=== PATIENT | male | born 1965 | race Caucasian/White ===

== ENCOUNTER 2017-02-10 17:44 | Emergency (ER) | payer OTHER ==
[2017-02-10 19:12] LABS: Comments Flag Yes; Hematocrit 48 % (42-52); Hemoglobin 15.8 g/dl (14.0-18.0); Mean Corpuscular HGB Conc 33 g/dl (31-36); Mean Corpuscular Hemoglobin 31 pg (27-31); Mean Corpuscular Volume 93 fL (80-94); Mean Platelet Volume 10 um3 (7.4-10.4); Red Blood Count 5.12 10^6/ul (4.0-5.4); Red Cell Distribution Width 14 % (10.5-15); White Blood Count 17.4 10^3/ul (3.5-10.8)
[2017-02-10 19:13] LABS: Add Diff/Slide Review? Slide Review Added
[2017-02-10 19:26] LABS: Albumin 4.1 g/dL (3.2-5.2); BUN/Creatinine Ratio 17.9 (8-20); EGFR African American 135.5 (>60); EGFR Non-African American 105.4 (>60); Globulin 2.9 g/dL (2-4); Potassium 3.7 mmol/L (3.5-5.0); Total Bilirubin 0.6 mg/dL (0.2-1.0)
[2017-02-10 19:44] LABS: Neutrophil % 75 % (38-83); RBC Morphology Normal (Normal); Reactive Lymph % 5 % (0-6)
[2017-02-10] MEDS ORDERED: Ketorolac INJ* 30 MG/ML 1 ML VIAL IV ONE (20:28)
[2017-02-10] MEDS ORDERED: Iohexol 300* (CONTRAST) 10 ML SDV IV ONE (20:40)
--- NOTE | 2017-02-10 20:58 | RAD ---
HISTORY: Swelling and pain, tongue and throat swelling COMPARISONS: None TECHNIQUE: Multiple contiguous axial CT scans were obtained of the neck after the administration of nonionic intravenous contrast, with coronal and sagittal multiplanar reformations. FINDINGS: BRAIN AND ORBITS: The visualized brain and orbits are normal. PARANASAL SINUSES: The visualized paranasal sinuses are clear. SALIVARY GLANDS: The parotid glands, submandibular glands, sublingual glands are normal. NASAL CAVITY/NASOPHARYNX: The nasal cavity and nasopharynx are normal. ORAL CAVITY/OROPHARYNX: The oral cavity is obscured by streak artifact from dental amalgam. A tonsillolith is noted on the left. There is mild prominence of the adenoids and palatine tonsils.. LARYNGEAL APPARATUS/HYPOPHARYNX: The laryngeal apparatus and hypopharynx are normal. UPPER AIRWAY/UPPER ESOPHAGUS: The visualized upper airway and esophagus are normal. LUNG APICES: The lung apices are clear. THYROID GLAND: The thyroid gland is normal. LYMPH NODES: There is no lymphadenopathy by size criteria. VASCULATURE: The vasculature is unremarkable. BONES AND SOFT TISSUES: Degenerative changes are noted of the cervical spine. There is a chronic fracture of the lamina papyracea on the right. OTHER: None. IMPRESSION: MILD PROMINENCE OF THE PALATINE TONSILS AND ADENOIDS.
[2017-02-10] MEDS ORDERED: Dexamethasone IV* 4 MG/ML 5 ML VIAL (20 MG) IVPB ONE (21:11)
[2017-02-10] MEDS ORDERED: Clindamycin 600 MG IVPREMIX(* 600 MG/50 ML SDV IV ONE (21:11)
[2017-02-10] MEDS ORDERED: Lidocaine 2% VISCOUS* 15 ML UDC SWISH SPIT ONE (22:20)
[2017-02-10 23:11] VITALS: BP 123/91
[2017-02-10] MEDS ORDERED: Clindamycin CAP* 150 MG PO ONE (23:13)
--- NOTE | 2017-02-10 23:13 | ED ---
Ladonna Escalona Edward, scribed for Roque Le MD on 02/10/17 at 1822 . Throat Pain/Nasal Congestion - HPI Summary HPI Summary: 51 y/o male presents to ED c/o tongue swelling and pain aggravated with food. Patient's tongue swelling and pain started this morning. Associated sx: [place]E, R ear ache, sore throat, intermittent CP for the past couple of weeks, N/V with food for the past month. Past medications reviewed on visit. PMHx ear infections (10 times in last couple of years). - History of Current Complaint Chief Complaint: EDAllergicReaction Time Seen by Provider: 02/10/17 18:06 Hx Obtained From: Patient Onset/Duration: Sudden Onset, Lasting Hours - This morning, Still Present Severity: Severe Associated Signs And Symptoms: Positive: Sinus Discomfort - R ear ache - Allergies/Home Medications Allergies/Adverse Reactions: Allergies Allergy/AdvReac Type Severity Reaction Status Date / Time Acetaminophen [From Percocet] Allergy Itching Verified 02/10/17 18:52 PMH/Surg Hx/FS Hx/Imm Hx Previously Healthy: No Endocrine/Hematology History: Denies: Hx Diabetes, Hx Thyroid Disease Cardiovascular History: Denies: Hx Congestive Heart Failure, Hx Hypertension, Hx Pacemaker/ICD, Other Cardiovascular Problems/Disorders Respiratory History: Reports: Hx Sleep Apnea - NO CPAP YET Denies: Hx Asthma, Hx Chronic Obstructive Pulmonary Disease (COPD), Other Respiratory Problems/Disorders GI History: Reports: Hx Gastroesophageal Reflux Disease - ACID REFLUX CONTROL WITH MEDICATION Denies: Hx Ulcer, Other GI Disorders History: Denies: Hx Dialysis, Hx Kidney Stones, Hx Renal Disease, Other Problems/ Disorders Musculoskeletal History: Reports: Hx Arthritis - OSTEOARTHRITIS THROUGH-OUT BODY , Hx Back Problems, Other Musculoskeletal History - CHRONIC JOINT PAIN Sensory History: Reports: Hx Contacts or Glasses - HX OF GLASSES Denies: Hx Hearing Aid Opthamlomology History: Reports: Hx Contacts or Glasses - HX OF GLASSES Neurological History: Reports: Other Neuro Impairments/Disorders - PAIN CLINIC PT Psychiatric History: Reports: Hx Depression - CONTROL WITH MEDS Denies: Hx Panic Disorder - Surgical History Surgery Procedure, Year, and Place: 07/09 LEFT KNEE SCOPE, [facility] [place]. 2014 LEFT WRIST SURGERY, [facility] [place] Hx Anesthesia Reactions: No - Immunization History Date of Tetanus Vaccine: Unknown Date of Influenza Vaccine: None Infectious Disease History: No Infectious Disease History: Denies: Hx Hepatitis, Hx Human Immunodeficiency Virus (HIV), Traveled Outside the [place] in Last 30 Days - Family History Known Family History: Negative: Cardiac Disease, Diabetes - Social History Alcohol Use: None Alcohol Amount: 6 PER WEEK Substance Use Type: Reports: None Substance Use Comment - Amount & Last Used: yesterday Hx Tobacco Use: Yes Smoking Status (MU): Heavy Every Day Tobacco Smoker Type: Cigarettes Amount Used/How Often: 1 PK DAILY Length of Time of Smoking/Using Tobacco: 35 YRS Have You Smoked in the Last Year: Yes Review of Systems Constitutional: Negative Eyes: Negative Positive: Sore Throat, Ear Ache, Other - Tongue swelling and pain Positive: Chest Pain - couple of episodes last week, now resolved Respiratory: Negative Positive: Vomiting - for past month with food, Nausea - for past month with food Genitourinary: Negative Musculoskeletal: Negative Skin: Negative Positive: Headache Psychological: Normal All Other Systems Reviewed And Are Negative: Yes Physical Exam Triage Information Reviewed: Yes Vital Signs On Initial Exam: Initial Vitals Temp Pulse Resp BP Pulse Ox 98.9 F 96 20 149/98 96 02/10/17 17:49 02/10/17 17:49 02/10/17 17:49 02/10/17 17:49 02/10/17 17:49 Vital Signs Reviewed: Yes Appearance: Positive: Well-Appearing, No Pain Distress Skin: Positive: Warm, Skin Color Reflects Adequate Perfusion, Dry Head/Face: Positive: Normal Head/Face Inspection Eyes: Positive: Normal ENT: Positive: Other - R side of tongue swollen. No sublingual edema Neck: Positive: Supple, Nontender, No Lymphadenopathy Respiratory/Lung Sounds: Positive: Clear to Auscultation, Breath Sounds Present Cardiovascular: Positive: RRR Abdomen Description: Positive: Nontender, Soft Bowel Sounds: Positive: Present Musculoskeletal: Positive: Normal Neurological: Positive: Normal Psychiatric: Positive: Normal, Affect/Mood Appropriate Diagnostics - Vital Signs Vital Signs Temp Pulse Resp BP Pulse Ox 02/10/17 17:58 98.3 F 87 16 139/99 94 02/10/17 17:49 98.9 F 96 20 149/98 96 - Laboratory Lab Results: Lab Results 02/10/17 02/10/17 02/10/17 Range/Units 19:03 19:03 19:03 WBC 17.4 H (3.5-10.8) 10^3/ul RBC 5.12 (4.0-5.4) 10^6/ul Hgb 15.8 (14.0-18.0) g/dl Hct 48 (42-52) % MCV 93 (80-94) fL MCH 31 (27-31) pg MCHC 33 (31-36) g/dl RDW 14 (10.5-15) % Plt Count 212 (150-450) 10^3/ul MPV 10 (7.4-10.4) um3 Neut % (Auto) 78.1 (38-83) % Lymph % (Auto) 10.8 L (25-47) % Mckenzie % (Auto) 9.8 H (1-9) % Eos % (Auto) 0.7 (0-6) % Baso % (Auto) 0.6 (0-2) % Absolute Neuts (auto) 13.6 H (1.5-7.7) 10^3/ul Absolute Lymphs (auto) 1.9 (1.0-4.8) 10^3/ul Absolute Monos (auto) 1.7 H (0-0.8) 10^3/ul Absolute Eos (auto) 0.1 (0-0.6) 10^3/ul Absolute Basos (auto) 0.1 (0-0.2) 10^3/ul Absolute Nucleated RBC 0 10^3/ul Neutrophils % 75 (38-83) % Lymphocytes % 13 L (25-47) % Reactive Lymphs % 5 (0-6) % Monocytes % 7 (0-13) % Nucleated RBC % 0 Normal RBC Morphology Normal (Normal) INR (Anticoag Therapy) 1.02 (0.89-1.11) Sodium 135 (133-145) mmol/L Potassium 3.7 (3.5-5.0) mmol/L Chloride 103 (101-111) mmol/L Carbon Dioxide 28 (22-32) mmol/L Anion Gap 4 (2-11) mmol/L BUN 14 (6-24) mg/dL Creatinine 0.78 (0.67-1.17) mg/dL Est GFR ( Amer) 135.5 (>60) Est GFR (Non-Af Amer) 105.4 (>60) BUN/Creatinine Ratio 17.9 (8-20) Glucose 144 H (70-100) mg/dL Lactic Acid (0.5-2.0) mmol/L Calcium 9.0 (8.6-10.3) mg/dL Total Bilirubin 0.60 (0.2-1.0) mg/dL AST 32 (13-39) U/L ALT 49 (7-52) U/L Alkaline Phosphatase 85 (34-104) U/L Total Protein 7.0 (6.4-8.9) g/dL Albumin 4.1 (3.2-5.2) g/dL Globulin 2.9 (2-4) g/dL Albumin/Globulin Ratio 1.4 (1-3) /18/17 Range/Units 19:03 WBC (3.5-10.8) 10^3/ul RBC (4.0-5.4) 10^6/ul Hgb (14.0-18.0) g/dl Hct (42-52) % MCV (80-94) fL MCH (27-31) pg MCHC (31-36) g/dl RDW (10.5-15) % Plt Count (150-450) 10^3/ul MPV (7.4-10.4) um3 Neut % (Auto) (38-83) % Lymph % (Auto) (25-47) % Mckenzie % (Auto) (1-9) % Eos % (Auto) (0-6) % Baso % (Auto) (0-2) % Absolute Neuts (auto) (1.5-7.7) 10^3/ul Absolute Lymphs (auto) (1.0-4.8) 10^3/ul Absolute Monos (auto) (0-0.8) 10^3/ul Absolute Eos (auto) (0-0.6) 10^3/ul Absolute Basos (auto) (0-0.2) 10^3/ul Absolute Nucleated RBC 10^3/ul Neutrophils % (38-83) % Lymphocytes % (25-47) % Reactive Lymphs % (0-6) % Monocytes % (0-13) % Nucleated RBC % Normal RBC Morphology (Normal) INR (Anticoag Therapy) (0.89-1.11) Sodium (133-145) mmol/L Potassium (3.5-5.0) mmol/L Chloride (101-111) mmol/L Carbon Dioxide (22-32) mmol/L Anion Gap (2-11) mmol/L BUN (6-24) mg/dL Creatinine (0.67-1.17) mg/dL Est GFR ( Amer) (>60) Est GFR (Non-Af Amer) (>60) BUN/Creatinine Ratio (8-20) Glucose (70-100) mg/dL Lactic Acid 1.0 (0.5-2.0) mmol/L Calcium (8.6-10.3) mg/dL Total Bilirubin (0.2-1.0) mg/dL AST (13-39) U/L ALT (7-52) U/L Alkaline Phosphatase (34-104) U/L Total Protein (6.4-8.9) g/dL Albumin (3.2-5.2) g/dL Globulin (2-4) g/dL Albumin/Globulin Ratio (1-3) Result Diagrams: 02/10/17 19:03 02/10/17 19:03 Lab Statement: Any lab studies that have been ordered have been reviewed, and results considered in the medical decision making process. - CT NECK CT CT Interpretation: Positive (See Comments) - MILD PROMINENCE OF THE PALATINE TONSILS AND ADENOIDS. CT Interpretation Completed By: Radiologist ELIDA Course/Dx - Course Course Of Treatment: Mr. Crawford presented with a sore throat flr a couple of weeks and then tongue swelling and pain starting today. His tongue was swollen and mildly erythematous and tender. His posterior phaynx was mildy erythematous. There was no lymphadenopathy. Both TM's were erythematous. He was afebrile but had a leukocytosis of 17K. CT was negative for abscess or significant buccal edema. I recommended that we admit him for observation but he adamantly refused. He was given a first dose of Clindamycin here and a script was sent. - Diagnoses Provider Diagnoses: Pharyngitis Discharge - Discharge Plan Condition: Stable Disposition: HOME Prescriptions: Clindamycin CAP* [Cleocin 150 MG CAP*] 300 mg PO QID #28 cap Patient Education Materials: Pharyngitis (ED) Referrals: Earnest Murphy MD [Primary Care Provider] - 3 Days (F/U in 2-3 days please) The documentation as recorded by the jamalibLadonna wise Edward accurately reflects the service I personally performed and the decisions made by me, Roque Le MD.
== END 2017-02-10 23:13 | disposition home or self-care (01) ==
LOC: ED 17:44
DX: J02.9 Acute pharyngitis, unspecified (principal); H92.01 Otalgia, right ear; R51 Headache; R07.9 Chest pain, unspecified; K21.9 Gastro-esophageal reflux disease without esophagitis; F32.9 Major depressive disorder, single episode, unspecified; Z88.6 Allergy status to analgesic agent; F17.210 Nicotine dependence, cigarettes, uncomplicated
CPT/HCPCS: 36415; 70491; 80053; 83605; 85025; 85610; 87040; 96365; 96375; 99283; J1885

== ENCOUNTER 2018-01-20 09:19 | Emergency (ER) | payer OTHER ==
[2018-01-20 09:53] VITALS: BP 160/100
[2018-01-20] MEDS ORDERED: HYDROcodone/ACETAMIN 5-325 MG* 1 TAB PO ONE (10:15)
--- NOTE | 2018-01-20 10:18 | UC ---
Back Pain HPI - HPI Summary HPI Summary: 52 year old male here requesting medication refill. Patient requesting oxycodone and ambien. He reports his PMD fired him because he missed his appointments. Denies fall in the past few days. Chronic back pain but no numbness, tingling, motor weakness or any other complaints. Of note, patient istop revealed the following results. Others' Prescriptions Patient Name: Leonardo Crawford Date: 1965 Address: [address] [place] [address] Sex: Male Rx Written Rx Dispensed Drug Quantity Days Supply Prescriber Name 01/04/2018 01/04/2018 oxycodone hcl 15 mg tablet 60 15 [place], Earnest Sosa 12/28/2017 12/29/2017 oxycodone hcl 15 mg tablet 30 7 [place], Earnest Sosa 12/28/2017 12/29/2017 zolpidem tartrate 5 mg tablet 14 14 [place], Earnest Sosa 11/24/2017 11/30/2017 oxycodone hcl 15 mg tablet 120 30 [place], Earnest Sosa 11/05/2017 11/24/2017 oxycodone hcl 15 mg tablet 28 7 [place]est 10/05/2017 10/06/2017 oxycodone hcl 15 mg tablet 120 30 [place], Earnest Sosa 05/21/2017 09/18/2017 zolpidem tartrate 5 mg tablet 30 30 [place], Earnest Sosa 09/03/2017 09/06/2017 oxycodone hcl 15 mg tablet 120 30 [place], Earnest Sosa 08/04/2017 08/07/2017 oxycodone hcl 15 mg tablet 120 30 [place], Earnest Ssoa 08/04/2017 08/04/2017 virtussin ac liquid 473ml 12 [place] sosa 07/21/2017 07/23/2017 oxycodone hcl 15 mg tablet 60 15 [place], Earnest Sosa MD 07/07/2017 07/08/2017 oxycodone hcl 15 mg tablet 60 15 [place] MD 06/23/2017 06/23/2017 oxycodone hcl 15 mg tablet 60 15 [place] MD 06/08/2017 06/09/2017 oxycodone hcl 15 mg tablet 60 15 [place] MD 05/22/2017 05/25/2017 oxycodone hcl 15 mg tablet 60 15 [place] MD 05/21/2017 05/24/2017 zolpidem tartrate 5 mg tablet 30 30 [place] MD 04/23/2017 04/25/2017 oxycodone hcl 15 mg tablet 120 30 [place] MD 03/24/2017 03/26/2017 oxycodone hcl 15 mg tablet 120 30 [place] MD 02/24/2017 02/24/2017 oxycodone hcl 15 mg tablet 150 30 [place] MD 02/05/2017 02/06/2017 oxycodone hcl 10 mg tablet 150 25 [place]arnest MD - History of Current Complaint Chief Complaint: UCMedRefill Stated Complaint: MEDICATION REFILL Time Seen by Provider: 01/20/18 09:47 Hx Obtained From: Patient Onset/Duration: Gradual Onset Severity Initially: Moderate Severity Currently: Moderate Pain Intensity: 7 Back Pain: Is Diffuse Aggravating Factor(s): Movement Associated Signs And Symptoms: Positive: Negative - Allergies/Home Medications Allergies/Adverse Reactions: Allergies Allergy/AdvReac Type Severity Reaction Status Date / Time MS Acetaminophen Allergy Itching Verified 02/10/17 18:52 [From Percocet] PMH/Surg Hx/FS Hx/Imm Hx Previously Healthy: No - Surgical History Surgical History: Yes Surgery Procedure, Year, and Place: 07/09 [place] [facility] [place] 2014 [place] [facility] [place] - Family History Known Family History: Negative: Cardiac Disease, Diabetes - Social History Alcohol Use: None Alcohol Amount: 6 PER WEEK Substance Use Type: Marijuana Substance Use Comment - Amount & Last Used: yesterday Smoking Status (MU): Heavy Every Day Tobacco Smoker Type: Cigarettes Amount Used/How Often: 1 PK DAILY Length of Time of Smoking/Using Tobacco: 35 YRS Have You Smoked in the Last Year: Yes When Did the Patient Quit Smoking/Using Tobacco: PACK/DAY Household Exposure Type: Cigarettes Review of Systems Constitutional: Negative Skin: Negative Eyes: Negative ENT: Negative Respiratory: Negative Cardiovascular: Negative Gastrointestinal: Negative Genitourinary: Negative Motor: Negative Neurovascular: Negative Musculoskeletal: Negative Neurological: Negative Psychological: Negative All Other Systems Reviewed And Are Negative: Yes Physical Exam Triage Information Reviewed: Yes Vital Signs: Initial Vital Signs Temp 36.4 C 01/20/18 09:44 Pulse 112 01/20/18 09:44 Resp 16 01/20/18 09:44 BP 160/100 01/20/18 09:44 Pulse Ox 97 01/20/18 09:44 Eye Exam: Normal ENT Exam: Normal Dental Exam: Normal Neck exam: Normal Cardiovascular Exam: Normal Abdominal Exam: Normal Musculoskeletal Exam: Normal Psychological Exam: Normal Skin Exam: Normal Back Pain Course/Dx - Course Course Of Treatment: Chronic pain. I discussed with him that I cant refill his medications but will give a dose and refer him to new . - Differential Dx/Diagnosis Differential Diagnosis/HQI/PQRI: Strain, Sprain Provider Diagnoses: Chronic low back pain Discharge - Sign-Out/Discharge Documenting (check all that apply): Discharge/Admit/Transfer - Discharge Plan Condition: Good Disposition: HOME Prescriptions: Zolpidem TAB* [Ambien*] 5 mg PO BEDTIME PRN #5 tab MDD 2 PRN Reason: Insomnia Referrals: Earnest Murphy MD [Primary Care Provider] - Care [facility] [Outside] - Billing Disposition and Condition Condition: GOOD Disposition: Home
== END 2018-01-20 10:24 | disposition home or self-care (01) ==
LOC: UCEAST 09:19
DX: M54.5 Low back pain (principal); Z76.0 Encounter for issue of repeat prescription; G89.29 Other chronic pain; F17.210 Nicotine dependence, cigarettes, uncomplicated; Z88.5 Allergy status to narcotic agent
CPT/HCPCS: 99212; G0463

== ENCOUNTER 2018-10-29 15:31 | Emergency (ER) | payer OTHER ==
[2018-10-29 15:46] VITALS: BP 177/114
[2018-10-29] MEDS ORDERED: Benzonatate CAP* 100 MG PO ONE (16:13)
--- NOTE | 2018-10-29 16:13 | UC ---
Respiratory Complaint HPI - HPI Summary HPI Summary: 52-year-old male comes in with a chief complaint of cough and sputum production for 2 months. Patient is a smoker. The cough or chest congestion is been getting worse. His chest pain when he coughs. Depressed make the cough worse. He has had some wheezing. Patient's blood pressure is been elevated he was told that was elevated 3 months ago and is not on any hypertension medication. Patient has chronic leg pain needs to be on oxycodone for it and his legs still hurt. Patient does not have a primary care physician at this time and he states he is trying to get a primary care physician. - History of Current Complaint Chief Complaint: UCRespiratory Stated Complaint: COUGH Time Seen by Provider: 10/29/18 15:36 Pain Intensity: 0 - Allergies/Home Medications Allergies/Adverse Reactions: Allergies Allergy/AdvReac Type Severity Reaction Status Date / Time acetaminophen [From Tylenol] Allergy Itching Verified 10/29/18 15:47 PMH/Surg Hx/FS Hx/Imm Hx Previously Healthy: Yes - CHRONIC LEG PAIN Cardiovascular History: Hypertension Respiratory History: COPD - Surgical History Surgical History: Yes Surgery Procedure, Year, and Place: 07[place]09 [place] [facility] [place] [facility] [place] - Family History Known Family History: Negative: Cardiac Disease, Diabetes - Social History Alcohol Use: Daily Alcohol Amount: 6 PER WEEK Substance Use Type: Marijuana Substance Use Comment - Amount & Last Used: yesterday Smoking Status (MU): Heavy Every Day Tobacco Smoker Type: Cigarettes, Cigars Amount Used/How Often: 1 PK DAILY Length of Time of Smoking/Using Tobacco: 35 YRS Have You Smoked in the Last Year: Yes When Did the Patient Quit Smoking/Using Tobacco: PACK/DAY Household Exposure Type: Cigarettes Review of Systems All Other Systems Reviewed And Are Negative: Yes Constitutional: Positive: Fatigue Skin: Positive: Negative Eyes: Positive: Negative ENT: Positive: Nasal Discharge, Sinus Congestion Respiratory: Positive: Shortness Of Breath, Cough, Other - SEE HPI Cardiovascular: Positive: Chest Pain - SEE HPI Gastrointestinal: Positive: Negative Motor: Positive: Negative Neurovascular: Positive: Negative Musculoskeletal: Positive: Other: - SEE HPI Neurological: Positive: Negative Psychological: Positive: Negative Is Patient Immunocompromised?: No Physical Exam Triage Information Reviewed: Yes Appearance: No Pain Distress, Well-Nourished, Ill-Appearing - MILD Vital Signs: Initial Vital Signs Temp 99.0 F 10/29/18 15:38 Pulse 102 10/29/18 15:38 Resp 16 10/29/18 15:38 BP 177/114 10/29/18 15:38 Pulse Ox 100 10/29/18 15:38 Vital Signs Reviewed: Yes Eye Exam: Normal Eyes: Positive: Conjunctiva Clear ENT: Positive: Pharynx normal, Nasal congestion, Nasal drainage, TMs normal Neck exam: Normal Neck: Positive: Supple Respiratory: Positive: No respiratory distress, Rhonchi Cardiovascular: Positive: RRR Musculoskeletal Exam: Normal Musculoskeletal: Positive: Strength Intact, ROM Intact, No Edema, Other: - REPORTS B/L GENERALIZED TENDERNESS TO PALPATION OF LEGS Psychological Exam: Normal Psychological: Positive: Age Appropriate Behavior Skin Exam: Normal Respiratory Course/Dx - Course Course Of Treatment: Patient does not have a primary care physician at this time. I gave them referrals [place] [facility] [place] and [facility] We'll treat the hypertension with lisinopril 10 mg by mouth daily. Patient reports he was on oxycodone for the legs. There are treat with albuterol and a azithromycin and Tessalon for the cough and chest congestion. I did not hear consolidation in the chest today so I do not believe there is a pneumonia at this time. Let the patient know if he gets worse he is reevaluated again right away. - Differential Dx/Diagnosis Provider Diagnosis: Bronchitis with bronchospasm, Hypertension, Leg pain, bilateral Discharge - Sign-Out/Discharge Documenting (check all that apply): Patient Departure All imaging exams completed and their final reports reviewed: No Studies - Discharge Plan Condition: Stable Disposition: HOME Prescriptions: Albuterol HFA INHALER* [Ventolin HFA Inhaler*] 2 puff INH Q4H PRN #1 mdi PRN Reason: Wheezing Azithromyxin CESAR (NF) [Z-Cesar (Zithromax) 250 mg tabs #6] 2 tab PO .TODAY, THEN 1 DAILY #6 tab Benzonatate CAP* [Tessalon 100 MG CAP*] 100 mg PO TID PRN #20 cap PRN Reason: Cough Lisinopril 10 mg PO DAILY #30 tablet oxyCODONE TAB* [Roxycodone TAB 5 mg*] 5 mg PO Q6H PRN #20 tab MDD 4 PRN Reason: Pain Patient Education Materials: Acute Bronchitis (ED), Hypertension (ED), Bronchospasm (ED), Leg Pain (ED) Referrals: [facility] [Outside] [facility] [place] [place]Outside] Additional Instructions: FOLLOW UP WITH YOUR PRIMARY CARE DOCTOR OR [facility]. GET REEVALUATED SOONER FOR ANY WORSENING OF YOUR CONDITION OR ANY QUESTIONS OR CONCERNS. - Billing Disposition and Condition Condition: STABLE Disposition: Home
== END 2018-10-29 16:28 | disposition home or self-care (01) ==
LOC: UCEAST 15:31
DX: J44.9 Chronic obstructive pulmonary disease, unspecified (principal); J98.01 Acute bronchospasm; I10 Essential (primary) hypertension; M79.605 Pain in left leg; M79.604 Pain in right leg; G89.29 Other chronic pain; F17.210 Nicotine dependence, cigarettes, uncomplicated; Z88.8 Allergy status to other drugs, medicaments and biological substances
CPT/HCPCS: 99212; G0463

== ENCOUNTER 2018-11-22 10:52 | Emergency (ER) | payer OTHER ==
[2018-11-22 11:28] VITALS: BP 152/105
[2018-11-22] MEDS ORDERED: Lidocaine 1%* 5 ML VIAL INJ ONE (11:57)
[2018-11-22] MEDS ORDERED: Tetan/Diph/Pertus SYR(Tdap)* 0.5 ML SYR(BOOSTRIX) use SYR IM ONE (11:57)
[2018-11-22] MEDS ORDERED: Ibuprofen TAB* 600 MG PO ONE (11:58)
--- NOTE | 2018-11-22 12:29 | UC ---
Skin Complaint HPI - HPI Summary HPI Summary: 52-year-old male presents with greater than 1 week worth of painful swelling and redness in his left antecubital area. He denies drug use and states that he hurt this when he was working under his vehicle and scratched it on the exhaust. He specifically denies attempting drug use in this area. He presents with shakes chills, malaise and nausea associated with this. It has drained some but has continued to grow over the last few days. - History of Current Complaint Chief Complaint: UCSkin Time Seen by Provider: 11/22/18 11:50 Stated Complaint: SKIN COMPLAINT Hx Obtained From: Patient Pain Intensity: 10 - Allergy/Home Medications Allergies/Adverse Reactions: Allergies Allergy/AdvReac Type Severity Reaction Status Date / Time acetaminophen [From Tylenol] Allergy Itching Verified 11/22/18 11:28 PMH/Surg Hx/FS Hx/Imm Hx Cardiovascular History: Hypertension Other History Of: Hepatitis C - Surgical History Surgical History: Yes Surgery Procedure, Year, and Place: 07/09 [place] [facility] [place] [facility] [place] - Family History Known Family History: Negative: Cardiac Disease, Diabetes - Social History Occupation: Employed Full-time Alcohol Use: Occasionally Alcohol Amount: 6 PER WEEK Substance Use Type: Marijuana Substance Use Comment - Amount & Last Used: yesterday Smoking Status (MU): Heavy Every Day Tobacco Smoker Type: Cigarettes, Cigars Amount Used/How Often: 1 PK DAILY Length of Time of Smoking/Using Tobacco: 35 YRS Have You Smoked in the Last Year: Yes When Did the Patient Quit Smoking/Using Tobacco: PACK/DAY Household Exposure Type: Cigarettes Review of Systems All Other Systems Reviewed And Are Negative: Yes Constitutional: Positive: Fever, Chills, Fatigue Skin: Positive: Other - abscess Respiratory: Positive: Negative Cardiovascular: Positive: Palpitations Gastrointestinal: Positive: Negative, Nausea Musculoskeletal: Positive: Edema, Myalgia Physical Exam Appearance: Ill-Appearing, Pain Distress Vital Signs: Initial Vital Signs Temp 99.2 F 11/22/18 11:23 Pulse 96 11/22/18 11:23 Resp 20 11/22/18 11:23 BP 152/105 11/22/18 11:23 Pulse Ox 100 11/22/18 11:23 Vital Signs Reviewed: Yes ENT Exam: Normal Neck: Positive: Supple Respiratory: Positive: Lungs clear Cardiovascular: Positive: Tachycardia Abdomen Description: Positive: Nontender Musculoskeletal: Positive: Other: - Track moreno noted in the right upper extremity. Neurological: Positive: Other: - Normal range of motion and strength in the left upper extremity Skin Exam: Other - Large, pointing, fluctuant abscess in the left antecubital area with surrounding redness. No tract moreno adjacent. Procedures - Incision and Drainage L AC area Site: L antecubital fossa Anesthesia: Local - lidocaine 1% 5 cc Instrument(s): Scalpel - 11 blade Packing: Gauze, Other - abscess drained approximately 100 cc of purulent material dressed with Kerlix Course/Dx - Course Course Of Treatment: Extremely large abscess in the before meals area likely associated with injection drug use. Patient presented with septic signs and so he was consented for transport to the ER which he consented to. He was then consented for incision and drainage which was performed prior to ambulance transport. A wound culture was obtained. Tetanus shot was not given prior to ambulance disposition. He will need IV antibiotics and blood work which is reason for transport to the emergency department. - Differential Diagnoses - Skin Complaint Differential Diagnoses: Abscess, Other - IV drug use - Diagnoses Provider Diagnosis: Abscess of left arm, IVDU (intravenous drug user), Sepsis Discharge - Sign-Out/Discharge Documenting (check all that apply): Patient Departure All imaging exams completed and their final reports reviewed: No Studies - Discharge Plan Condition: Fair Disposition: TRANS HIGHER LVL OF CARE FAC Referrals: No Primary Care Phys,NOPCP [Primary Care Provider] - Additional Instructions: Go directly to the ER for evaluation. - Billing Disposition and Condition Condition: FAIR Disposition: Trans Higher Lvl of Care Fac - Attestation Statements Document Initiated by Scribe: No
--- NOTE | 2018-11-22 19:31 | UC ---
- Progress Note Progress Note: 11/22/2018 Wound culture positive for MRSA and S. Aureus. Pt was sent to ER for IV antibiotics and further management on his abscess. Pt was D/c home w/ Bactrim PO which covers it No change Meenu Batista PA-C Course/Dx - Diagnoses Provider Diagnoses: Abscess of left arm, IVDU (intravenous drug user), Sepsis Discharge - Sign-Out/Discharge Documenting (check all that apply): Post-Discharge Follow Up All imaging exams completed and their final reports reviewed: No Studies - Discharge Plan Condition: Fair Disposition: TRANS HIGHER LVL OF CARE FAC Referrals: No Primary Care Phys,NOPCP [Primary Care Provider] - Additional Instructions: Go directly to the ER for evaluation. - Billing Disposition and Condition Condition: FAIR Disposition: Trans Higher Lvl of Care Fac
== END 2018-11-22 12:37 | disposition short-term general hospital (02) ==
LOC: UCEAST 10:52
DX: A41.9 Sepsis, unspecified organism (principal); L02.414 Cutaneous abscess of left upper limb; B95.62 Methicillin resistant Staphylococcus aureus infection as the cause of diseases classified elsewhere; R00.2 Palpitations; I10 Essential (primary) hypertension; B19.20 Unspecified viral hepatitis C without hepatic coma; F19.20 Other psychoactive substance dependence, uncomplicated; F17.210 Nicotine dependence, cigarettes, uncomplicated; Z88.6 Allergy status to analgesic agent
CPT/HCPCS: 10060; 87070; 87077; 87186; 87205; 87640; 87641; 99213; A9270-GY; G0463

== ENCOUNTER 2018-11-22 12:45 | Emergency (ER) | payer OTHER ==
[2018-11-22] MEDS ORDERED: Cefepime(*) 2 GM in NS 0.9% 50 ML* 50 ML IVPB ONE (12:56)
[2018-11-22] MEDS ORDERED: metroNIDAZOLE IV 500 MG/100ML* 500 MG/100 ML BAG IVPB ONE (12:56)
--- NOTE | 2018-11-22 13:01 | ED ---
HPI Febrile Illness - HPI Summary HPI Summary: Patient is a 52 y/o M presenting to ED via EMS from [facility] [place] for possible sepsis. Patient had used IV methamphetamine about 1.5 weeks ago and subsequently had the formation of an abscess at left arm. He notes that he typically does not use methamphetamine or any other drugs. Patient had incision and drainage at and had a wound culture obtained. Redness at the site is noted. He denies Hx of MRSA and abscess. PMHx of HTN, patient is on Lisinopril. PSHx of hand surgery is reported. FMHx of HTN, HLD, diabetes is denied. He is a current smoker, reports rare alcohol usage, denies any other substance usage. Pulse 93, BP 174/ 115, o2 98. On triage, pain is denied, nothing is noted to aggravate/alleviate Sx. Home medications and allergies are reviewed. - History of Current Complaint Chief Complaint: EDRashSkinAbscess Hx Obtained From: Patient Onset/Duration: Started Weeks Ago - 1.5 weeks ago, meth usage, subsequent abscess formation, Still Present Timing: Constant, Lasting Weeks - 1.5 weeks ago, meth usage, subsequent abscess formation Current Severity: None - pain denied Pain Intensity: 0 Pain Scale Used: 0-10 Numeric - 0/10 Aggravating Factors: Nothing Alleviating Factors: Nothing Associated Signs and Symptoms: Chills, Other: - redness of left arm - Allergy/Home Medications Allergies/Adverse Reactions: Allergies Allergy/AdvReac Type Severity Reaction Status Date / Time acetaminophen [From Tylenol] Allergy Itching Verified 11/22/18 11:28 Home Medications: Home Medications Famotidine TAB 40 MG(NF) [Pepcid TAB 40 MG(NF)] 40 mg PO DAILY 11/22/18 [ History Confirmed 11/22/18] Lisinopril TAB* [Prinivil TAB 10 MG*] 10 mg PO DAILY 11/22/18 [History Confirmed 11/22/18] PMH/Surg Hx/FS Hx/Imm Hx Endocrine/Hematology History: Denies: Hx Diabetes, Hx Thyroid Disease Cardiovascular History: Reports: Hx Hypertension Denies: Hx Congestive Heart Failure, Hx Pacemaker/ICD, Other Cardiovascular Problems/Disorders Respiratory History: Reports: Hx Sleep Apnea - NO CPAP YET Denies: Hx Asthma, Hx Chronic Obstructive Pulmonary Disease (COPD), Other Respiratory Problems/Disorders GI History: Reports: Hx Gastroesophageal Reflux Disease - ACID REFLUX CONTROL WITH MEDICATION Denies: Hx Ulcer, Other GI Disorders History: Denies: Hx Dialysis, Hx Kidney Stones, Hx Renal Disease, Other Problems/ Disorders Musculoskeletal History: Reports: Hx Arthritis - OSTEOARTHRITIS THROUGH-OUT BODY , Hx Back Problems, Other Musculoskeletal History - CHRONIC JOINT PAIN Sensory History: Reports: Hx Contacts or Glasses - HX OF GLASSES Denies: Hx Hearing Aid Opthamlomology History: Reports: Hx Contacts or Glasses - HX OF GLASSES Neurological History: Reports: Other Neuro Impairments/Disorders - PAIN CLINIC PT Psychiatric History: Reports: Hx Depression - CONTROL WITH MEDS Denies: Hx Panic Disorder - Surgical History Surgery Procedure, Year, and Place: 07/09 LEFT KNEE SCOPE, [facility] [place]. 2014 LEFT WRIST SURGERY, [facility] [place] Hx Anesthesia Reactions: No - Immunization History Date of Tetanus Vaccine: Unknown Date of Influenza Vaccine: None Infectious Disease History: No Infectious Disease History: Denies: Hx Hepatitis, Hx Human Immunodeficiency Virus (HIV), Traveled Outside the [place] in Last 30 Days - Family History Known Family History: Negative: Cardiac Disease, Hypertension, Diabetes - Social History Alcohol Use: Occasionally Alcohol Amount: 6 PER WEEK Substance Use Type: Reports: None Hx Tobacco Use: Yes Smoking Status (MU): Heavy Every Day Tobacco Smoker Type: Cigarettes, Cigars Amount Used/How Often: 1 PK DAILY Length of Time of Smoking/Using Tobacco: 35 YRS Have You Smoked in the Last Year: Yes Review of Systems Positive: Chills. Negative: Fever Skin: Other - POSITIVE - REDNESS OF LEFT ARM All Other Systems Reviewed And Are Negative: Yes Physical Exam - Summary Physical Exam Summary: VITAL SIGNS: Reviewed. GENERAL: Patient is a well-developed and nourished male who is lying comfortable in the stretcher. Patient is not in any acute respiratory distress. HEAD AND FACE: No signs of trauma. No ecchymosis, hematomas or skull depressions. No sinus tenderness. EYES: PERRLA, EOMI x 2, No injected conjunctiva, no nystagmus. EARS: Hearing grossly intact. Ear canals and tympanic membranes are within normal limits. MOUTH: Oropharynx within normal limits. NECK: Supple, trachea is midline, no adenopathy, no JVD, no carotid bruit, no c- spine tenderness, neck with full ROM. CHEST: Symmetric, no tenderness at palpation LUNGS: Clear to auscultation bilaterally. No wheezing or crackles. CVS: Regular rate and rhythm, S1 and S2 present, no murmurs or gallops appreciated. ABDOMEN: Soft, non-tender. No signs of distention. No rebound no guarding, and no masses palpated. Bowel sounds are normal. EXTREMITIES: FROM in all major joints, no edema, no cyanosis or clubbing. NEURO: Alert and oriented x 3. No acute neurological deficits. Speech is normal and follows commands. SKIN: Dry and warm; erythema at anterior of left elbow with tracking to axilla Triage Information Reviewed: Yes Vital Signs On Initial Exam: Initial Vitals Temp Pulse Resp BP Pulse Ox 99.4 F 93 18 174/115 96 11/22/18 12:48 11/22/18 12:48 11/22/18 12:48 11/22/18 12:48 11/22/18 12:48 Vital Signs Reviewed: Yes Diagnostics - Vital Signs Vital Signs Temp Pulse Resp BP Pulse Ox 11/22/18 12:48 99.4 F 93 18 174/115 96 - Laboratory Result Diagrams: 11/22/18 13:28 11/22/18 13:12 Lab Statement: Any lab studies that have been ordered have been reviewed, and results considered in the medical decision making process. Re-Evaluation - Re-Evaluation First Eval Re-Evaluation Time: 15:05 Comment: I discussed all the findings and test results with the patient. Patient was instructed to return to the emergency room immediately if any of the symptoms return worsens. Plan of care was discussed with the patient and understands and agrees. All questions were answered at patient satisfaction. There were no further complaints or concerns. Lung exam before discharge: CTA B/ L. Good air exchange. No wheezing or crackles heard. CVS: S1 and S2 present. No murmurs appreciated. Patient is alert and oriented x 3. Patient is hemodynamically stable. Patient will be discharged home with follow up PCP in the next 2-3 days Course/Dx - Course Assessment/Plan: This patient is a 52-year-old male who presents to the emergency department after he was transferred from the urgent care with a chief complaint of having an abscess in the left elbow. The abscess was I&D by the provider at urgent care. Blood work without any significant abnormality except for hemoglobin 13.6, glucose of 103, CRP of 49.11. During ED course the patient was given cefepime and Flagyl. However, since all the blood test and vital signs do not suggest that the patient is septic, patient will be discharged home with follow-up with primary care physician. Patient is hemodynamically stable alert and oriented 3. Patient will be discharged with a prescription for Bactrim. I discussed all the findings and test results with the patient. Patient was instructed to return to the emergency room immediately if any of the symptoms return worsens. Plan of care was discussed with the patient and understands and agrees. All questions were answered at patient satisfaction. There were no further complaints or concerns. Lung exam before discharge: CTA B/L. Good air exchange. No wheezing or crackles heard. CVS: S1 and S2 present. No murmurs appreciated. Patient is alert and oriented x 3. Patient is hemodynamically stable. Patient will be discharged home with follow up PCP in the next 2-3 days - Diagnoses Provider Diagnoses: Abscess, Cellulitis Discharge - Sign-Out/Discharge Documenting (check all that apply): Patient Departure - discharge Patient Received Moderate/Deep Sedation with Procedure: No - Discharge Plan Condition: Stable Disposition: HOME Prescriptions: Sulfamethox/Trimethoprim DS* [Bactrim DS 800/160 TAB*] 1 tab PO BID #20 tab Patient Education Materials: Cellulitis (ED), Abscess (ED) Referrals: [facility] [Outside] - 3 Days Additional Instructions: RETURN TO ED FOR ANY NEW OR WORSENING SYMPTOMS. FOLLOW UP WITH YOUR PRIMARY CARE PHYSICIAN WITHIN THREE DAYS - Billing Disposition and Condition Condition: STABLE Disposition: Home - Attestation Statements Document Initiated by Royer: Yes Documenting Scribe: PATRICIA NGUYEN Provider For Whom Royer is Documenting (Include Credential): JAILENE HARRELL MD Scribe Attestation: PATRICIA Escalona, scribed for JAILENE HARRELL MD on 11/22/18 at 2110. Scribe Documentation Reviewed: Yes Provider Attestation: The documentation as recorded by the PATRICIA gan accurately reflects the service I personally performed and the decisions made by , JAILENE HARRELL MD Status of Scribe Document: Viewed
[2018-11-22 13:38] LABS: Activated Partial Thrombo Time 28.8 seconds (26.0-36.3); INR 1.12 (0.82-1.09)
[2018-11-22 13:44] LABS: Albumin 3.9 g/dL (3.2-5.2); Albumin/Globulin Ratio 1.1 (1-3); BUN/Creatinine Ratio 23.2 (8-20); C Reactive Protein 49.11 mg/L (<8.01); Calcium 9.3 mg/dL (8.6-10.3); EGFR African American 146.3 (>60); EGFR Non-African American 120.9 (>60); Globulin 3.4 g/dL (2-4); Total Bilirubin 0.3 mg/dL (0.2-1.0); Total Protein 7.3 g/dL (6.4-8.9)
[2018-11-22] MEDS ORDERED: NS 0.9% 1000 ML** 1,000 ML IV ONE (13:53)
[2018-11-22 14:19] LABS: ABS Basophils 0 10^3/ul (0-0.2); ABS Eosinophils 0.1 10^3/ul (0-0.6); ABS Lymphocytes 1.6 10^3/ul (1.0-4.8); ABS Monocytes 0.9 10^3/ul (0-0.8); ABS Neutrophils 7.5 10^3/ul (1.5-7.7); ABS Nucleated RBC 0 10^3/ul; Eosinophil % 0.9 %; Hematocrit 40 % (36-46); Hemoglobin 13.6 g/dL (14.0-18.0); Lymphocyte % 15.4 %; Mean Corpuscular HGB Conc 34 g/dL (31-36); Mean Corpuscular Hemoglobin 31 pg (27-31); Mean Corpuscular Volume 90 fL (80-94); Mean Platelet Volume 8.9 fL (7.4-10.4); Nucleated Red Blood Cells % 0; Platelet Count 235 10^3/uL (150-450); Red Blood Count 4.41 10^6 /uL (4.18-5.48); Red Cell Distribution Width 13 % (10.5-15); White Blood Count 10.1 10^3/uL (3.5-10.8)
[2018-11-22 14:28] LABS: Potassium 4.4 mmol/L (3.5-5.0)
[2018-11-22] MEDS ORDERED: Cefepime 2 GM in Dextrose(*) 2 GM/50 ML BAG IV ONE (14:56)
[2018-11-22] MEDS ORDERED: Cefepime* 2 GM in Dextrose 50mL Q24H (Duplex) IV ONE (15:00)
[2018-11-22 15:53] VITALS: BP 159/100
== END 2018-11-22 15:53 | disposition home or self-care (01) ==
LOC: ED 12:45
DX: L02.414 Cutaneous abscess of left upper limb (principal); L03.114 Cellulitis of left upper limb; I10 Essential (primary) hypertension; K21.9 Gastro-esophageal reflux disease without esophagitis; F32.9 Major depressive disorder, single episode, unspecified; F17.210 Nicotine dependence, cigarettes, uncomplicated; Z79.899 Other long term (current) drug therapy; Z88.6 Allergy status to analgesic agent
CPT/HCPCS: 36415; 80053; 83605; 85025; 85610; 85730; 86140; 87040; 96365; 96366; 96367; 99283; J0692; J3490

== ENCOUNTER 2021-07-13 09:22 | Inpatient (IN) ==
[2021-07-13] MEDS ORDERED: Lactated Ringers 1000 ml BAG 1,000 ML IV ONE ×2 (09:38→09:48)
[2021-07-13] MEDS ORDERED: Albuterol HFA INHALER 8 gm MDI INH ONE (09:46)
[2021-07-13] MEDS ORDERED: Pantoprazole 80 mg in NS BAG 80 MG/250 ML BAG IV ONE (09:46)
[2021-07-13] MEDS ORDERED: Morphine 4 MG/ML VIAL (1 ml) IV ONE (09:48)
[2021-07-13] MEDS ORDERED: Dexamethasone IV 4 MG/ML VIAL 1 ml VIAL IV SLOW PU ONE (09:50)
[2021-07-13] MEDS ORDERED: Acetaminophen IV 1 GM/100ML 100 ML IV ONE (10:30)
[2021-07-13 10:33] LABS: Activated Partial Thrombo Time 30.7 seconds (26.0-38.0); INR 1.23 (0.86-1.15); Venous Bicarbonate HCO3 23.3 mmol/L (24-28)
[2021-07-13 10:36] LABS: Hematocrit 39 % (42-52); Mean Corpuscular HGB Conc 33 g/dL (31-36); Mean Corpuscular Hemoglobin 30 pg (27-31); Mean Corpuscular Volume 90 fL (80-94); Mean Platelet Volume 10.1 fL (7.4-10.4); Platelet Count 238 10^3/uL (150-450); Red Blood Count 4.37 10^6 /uL (4.18-5.48); Red Cell Distribution Width 14 % (10-15); White Blood Count 23.5 10^3/uL (3.5-10.8)
[2021-07-13] MEDS ORDERED: Morphine 2 MG/ML SYRINGE IV ONE (10:59)
[2021-07-13] MEDS ORDERED: Piperacillin/Tazobac ADVAN 3.375 GM in NS 0.9% 100 ml BAG 100 ML IV ONE (11:00)
[2021-07-13] MEDS ORDERED: Lactated Ringers 500 ml BAG 500 ML IV ONE (11:02)
[2021-07-13 11:05] LABS: Troponin I 0.01 ng/mL (<0.03)
[2021-07-13 11:08] LABS: LDH 276 U/L (140-271)
[2021-07-13 11:09] LABS: Albumin 3.5 g/dL (3.2-5.2); Calcium 8.4 mg/dL (8.6-10.3); Potassium 4.2 mmol/L (3.5-5.0); Total Bilirubin 0.4 mg/dL (0.2-1.0)
[2021-07-13 11:13] LABS: ABS Lymphocytes 0.5 10^3/ul (1.0-4.8); ABS Monocytes 1.9 10^3/ul (0-0.8); Lymphocyte % 2.3 %
[2021-07-13 11:15] LABS: Albumin/Globulin Ratio 1.1 (1-3); C Reactive Protein 103.67 mg/L (<8.01); Globulin 3.3 g/dL (2-4); Total Protein 6.8 g/dL (6.4-8.9)
[2021-07-13] MEDS ORDERED: Iohexol 350 (CONTRAST) 500 ML MDV IV ONE (11:20)
[2021-07-13] MEDS ORDERED: Albuterol HFA INHALER 8 gm MDI INH PRN (14:48)
[2021-07-13] MEDS ORDERED: Enoxaparin 40 MG/0.4 ML SYR SUBCUT SCH (15:00)
[2021-07-13] MEDS ORDERED: DOXYcycline 100 MG in NS 0.9% 250 ml 250 ML IVPB SCH ×2 (15:00→19:30)
[2021-07-13 15:13] LABS: Rheumatoid Factor < 10 IU/mL (<15)
[2021-07-13] MEDS: Piperacillin/Tazobac ADVAN 3.375 GM in NS 0.9% 100 ml BAG 100 ML IV SCH ×2 (15:22→23:50)
[2021-07-13 15:50] LABS: Urine Appearance Clear; Urine Bilirubin Negative (Negative); Urine Blood Negative (Negative); Urine Color Yellow; Urine Glucose 1+(50 mg/dL) (Negative); Urine Ketones Negative (Negative); Urine Nitrite Negative (Negative); Urine Protein Negative (Negative); Urine Specific Gravity 1.032 (1.002-1.030); Urine Urobilinogen Negative (Negative)
[2021-07-13] MEDS ORDERED: Vancomycin 1,000 MG in NS 0.9% 250 ml 250 ML IVPB ONE (19:00)
[2021-07-13] MEDS ORDERED: NS 0.9% 250 ml 250 ML ONE (19:17)
[2021-07-13] MEDS: Morphine 2 MG/ML SYRINGE IV PRN ×2 (20:23→23:53)
[2021-07-13 20:32] LABS: HIV 4th Generation Nonreactive (Nonreactive)
[2021-07-13] MEDS: Pantoprazole 80 mg in NS BAG 80 MG/250 ML BAG IV SCH (20:40)
[2021-07-14 02:09] VITALS: BP 116/59
[2021-07-14] MEDS: Morphine 2 MG/ML SYRINGE IV PRN ×2 (02:30→04:35)
[2021-07-14 05:07] LABS: Hematocrit 35 % (42-52); Hemoglobin 11.7 g/dL (14.0-18.0); Mean Corpuscular HGB Conc 34 g/dL (31-36); Mean Corpuscular Hemoglobin 30 pg (27-31); Mean Corpuscular Volume 89 fL (80-94); Mean Platelet Volume 10.5 fL (7.4-10.4); Platelet Count 223 10^3/uL (150-450); Red Blood Count 3.88 10^6 /uL (4.18-5.48); Red Cell Distribution Width 14 % (10-15); White Blood Count 25.6 10^3/uL (3.5-10.8)
[2021-07-14 05:14] LABS: ABS Basophils 0.1 10^3/ul (0-0.2); ABS Lymphocytes 1.4 10^3/ul (1.0-4.8); ABS Monocytes 1.6 10^3/ul (0-0.8); ABS Neutrophils 22.6 10^3/ul (1.5-7.7); Lymphocyte % 5.3 %
[2021-07-14] MEDS: Pantoprazole 80 mg in NS BAG 80 MG/250 ML BAG IV SCH (05:20)
[2021-07-14 05:25] LABS: Magnesium 1.5 mg/dL (1.9-2.7); Phosphorus 2.4 mg/dL (2.5-5.0); Potassium 4.1 mmol/L (3.5-5.0); eGFR CKD-EPI 89.4 (>60)
[2021-07-14] MEDS ORDERED: Piperacillin/Tazobac ADVAN 3.375 GM in NS 0.9% 100 ml BAG 100 ML IV SCH (06:00)
[2021-07-14] MEDS ORDERED: Magnesium Sulfate IV 3 GM in NS 0.9% 100 ml BAG 100 ML IVPB ONE (07:16)
[2021-07-14] MEDS ORDERED: Vancomycin 1000 MG in NS 0.9% 250 ML IVPB SCH (08:00)
[2021-07-14] MEDS ORDERED: DULoxetine DR 60 mg CAP PO SCH (09:00)
[2021-07-14] MEDS ORDERED: Dexamethasone IV 4 MG/ML 5 ML VIAL (20 MG) IVPB SCH (09:00)
[2021-07-14] MEDS ORDERED: Dexamethasone IV 4 MG/ML VIAL 1 ml VIAL IV SLOW PU SCH (09:00)
[2021-07-14] MEDS ORDERED: Tiotropium Brom/Olodaterol MDI INH SCH (09:00)
[2021-07-15] MEDS ORDERED: Vancomycin Trough Check NOTE FOLLOW UP ONE (07:30)
[2021-07-16 16:19] LABS: Complement C3 126 mg/dL (75 - 175)
[2021-07-16 17:51] LABS: Complement CH50 34 U/mL (30-75)
[2021-07-17 11:55] LABS: Cyclic Citrullinated Pept IgG <15.6 U
[2021-07-17 12:20] LABS: C-ANCA Negative (Negative); P-ANCA Negative (Negative)
== END 2021-07-14 07:00 | disposition left against medical advice (07) | DRG 720 ==
LOC: ED 09:22 → EDHOLD 14:26 → MED 07-14 01:34
PROVIDERS: ADMIT Internal Medicine; ATTEND Internal Medicine

== ENCOUNTER 2022-02-21 12:22 | Inpatient (IN) ==
[2022-02-21 13:00] LABS: ABS Basophils 0.1 10^3/ul (0-0.2); ABS Eosinophils 0.1 10^3/ul (0-0.6); ABS Lymphocytes 2.4 10^3/ul (1.0-4.8); ABS Monocytes 1.3 10^3/ul (0-0.8); ABS Neutrophils 7.6 10^3/ul (1.5-7.7); Eosinophil % 0.6 %; Hematocrit 46 % (42-52); Hemoglobin 15.5 g/dL (14.0-18.0); Lymphocyte % 20.6 %; Mean Corpuscular HGB Conc 33 g/dL (31-36); Mean Corpuscular Hemoglobin 30 pg (27-31); Mean Corpuscular Volume 89 fL (80-94); Mean Platelet Volume 9.6 fL (7.4-10.4); Platelet Count 274 10^3/uL (150-450); Red Blood Count 5.18 10^6 /uL (4.18-5.48); Red Cell Distribution Width 15 % (10-15); White Blood Count 11.4 10^3/uL (3.5-10.8)
[2022-02-21 13:21] LABS: INR 1.17 (0.89-1.11)
[2022-02-21 13:29] LABS: High Sens Troponin Baseline 11 pg/mL (<20)
[2022-02-21] MEDS ORDERED: NS 0.9% 1000 ml BAG 1,000 ML IV ONE (13:50)
[2022-02-21] MEDS ORDERED: Lorazepam PYXIS KEY PRN (13:51)
[2022-02-21] MEDS ORDERED: LORazepam 2 mg VIAL 1 ml IV PUSH ONE (13:51)
[2022-02-21 13:56] LABS: ALT 40 U/L (7-52); AST 30 U/L (13-39); Albumin 4.5 g/dL (3.2-5.2); Albumin/Globulin Ratio 1.3 (1-3); Alcohol, S < 13 mg/dL (<13); Alkaline Phosphatase 101 U/L (35-149); Anion Gap 9 mmol/L (2-11); Blood Urea Nitrogen 21 mg/dL (6-24); CO2 Carbon Dioxide 26 mmol/L (22-32); Calcium 9.8 mg/dL (8.6-10.3); Chloride 104 mmol/L (101-111); Globulin 3.4 g/dL (2-4); Glucose 146 mg/dL (70-100); Potassium 3.4 mmol/L (3.5-5.0); Sodium 139 mmol/L (135-145); Total Protein 7.9 g/dL (6.4-8.9); eGFR CKD-EPI 57.4 (>60)
[2022-02-21 14:33] LABS: High Sensitivity Troponin 1 Hr 12 pg/mL (<20)
[2022-02-21 14:43] LABS: Venous Bicarbonate HCO3 26.2 mmol/L (24-28)
[2022-02-21] MEDS ORDERED: Droperidol 5 MG/2 ML 2 ML VIAL IV ONE (17:07)
[2022-02-21] MEDS ORDERED: Midazolam 5 mg/5 ml VIAL 1 mg/ml 5 ml VIAL (5 mg) IV SLOW PU ONE (17:08)
[2022-02-21] MEDS ORDERED: Albuterol HFA INHALER 8 gm MDI INH PRN (20:11)
[2022-02-21] MEDS ORDERED: Lactated Ringers 1000 ml BAG 1,000 ML IV ONE (20:13)
[2022-02-21 20:16] LABS: Magnesium 1.7 mg/dL (1.9-2.7); Phosphorus 3.7 mg/dL (2.5-5.0)
[2022-02-21] MEDS ORDERED: Clotrimazole 1% CREAM 30 gm TOPICAL SCH (21:00)
[2022-02-21] MEDS ORDERED: Heparin 5000 UNITS/ML 1 mL VIAL SUBCUT SCH (22:00)
[2022-02-22] MEDS ORDERED: Magnesium Sulfate 2 gm BAG 2 GM/50 ML BAG IVPB ONE (01:34)
[2022-02-22 04:57] VITALS: BP 129/82
[2022-02-22] MEDS ORDERED: CMCS: Ketoconazole 2 % CREAM (NF) 30 GM TUBE TOPICAL SCH (09:00)
== END 2022-02-22 04:50 | disposition left against medical advice (07) | DRG 816 ==
LOC: ED 12:22 → EDHOLD 19:26 → ICU 20:00
PROVIDERS: ADMIT Internal Medicine Critical Care Medicine; ATTEND Internal Medicine Critical Care Medicine

== ENCOUNTER 2022-04-07 08:00 | Inpatient (IN) ==
[2022-04-07] MEDS ORDERED: Albuterol 2.5mg/3 ml (0.083%) NEB.SOLN INH ONE (08:32)
[2022-04-07 08:49] LABS: ABS Neutrophils 6.3 10^3/ul (1.5-7.7); Eosinophil % 0.1 %; Hematocrit 42 % (42-52); Hemoglobin 13.8 g/dL (14.0-18.0); Lymphocyte % 12.4 %; Mean Corpuscular HGB Conc 33 g/dL (31-36); Mean Corpuscular Hemoglobin 29 pg (27-31); Mean Corpuscular Volume 87 fL (80-94); Mean Platelet Volume 9.6 fL (7.4-10.4); Nucleated Red Blood Cells % 0.1; Platelet Count 152 10^3/uL (150-450); Red Cell Distribution Width 14 % (10-15); White Blood Count 8.4 10^3/uL (3.5-10.8)
[2022-04-07 09:36] LABS: Albumin 3.5 g/dL (3.2-5.2); Albumin/Globulin Ratio 1.1 (1-3); Calcium 8.1 mg/dL (8.6-10.3); Globulin 3.2 g/dL (2-4); Total Bilirubin 0.4 mg/dL (0.2-1.0); Total Protein 6.7 g/dL (6.4-8.9); eGFR CKD-EPI 103.4 (>60)
[2022-04-07] MEDS ORDERED: cefTRIAXone 1 gm/50 mL D5W 1 GM/50 ML BAG IV ONE (10:12)
[2022-04-07] MEDS ORDERED: methylPREDNISolone SOD SUCC 125 mg 2 ML VIAL IV ONE (10:12)
[2022-04-07] MEDS ORDERED: Azithromycin 500 mg/250 ml NS 500 MG/250 ML BAG IVPB ONE (10:12)
[2022-04-07] MEDS ORDERED: Nicotine PATCH 14 MG/24 HR PATCH TRANSDERM ONE (10:22)
[2022-04-07] MEDS ORDERED: Morphine 4 MG/ML VIAL (1 ml) IV ONE (10:22)
[2022-04-07 10:24] LABS: Magnesium 1.6 mg/dL (1.9-2.7); Potassium 4.1 mmol/L (3.5-5.0)
[2022-04-07] MEDS ORDERED: Magnesium Sulfate 2 gm BAG 2 GM/50 ML BAG IVPB ONE (10:36)
[2022-04-07 10:42] LABS: High Sensitivity Troponin 1 Hr 9 pg/mL (<20)
[2022-04-07] MEDS ORDERED: Iohexol 350 (CONTRAST) 500 ML MDV IV ONE (10:53)
[2022-04-07] MEDS ORDERED: Albuterol HFA INHALER 8 gm MDI INH PRN (13:29)
[2022-04-07] MEDS ORDERED: Enoxaparin 40 MG/0.4 ML SYR SUBCUT SCH (14:00)
[2022-04-07] MEDS ORDERED: cefTRIAXone 1 gm/50 mL D5W 1 GM/50 ML BAG IV SCH (14:30)
[2022-04-07] MEDS ORDERED: guaiFENesin 100 mg/5 ml LIQ unit dose cup PO SCH (15:00)
[2022-04-07] MEDS ORDERED: Remdesivir 100 mg Vial 200 MG in NS 0.9% 250 ml 210 ML IV ONE (15:00)
[2022-04-07] MEDS ORDERED: Albuterol HFA INHALER 8 gm MDI INH SCH ×2 (15:00→19:00)
[2022-04-07 19:54] VITALS: BP 149/89
[2022-04-07 20:02] LABS: INR 1.11 (0.89-1.11)
[2022-04-07 20:23] LABS: Albumin 3.5 g/dL (3.2-5.2); Albumin/Globulin Ratio 1.1 (1-3); Calcium 8.5 mg/dL (8.6-10.3); Globulin 3.1 g/dL (2-4); Potassium 4.3 mmol/L (3.5-5.0); Total Bilirubin 0.3 mg/dL (0.2-1.0); Total Protein 6.6 g/dL (6.4-8.9)
[2022-04-07 21:48] LABS: eGFR CKD-EPI 106.1 (>60)
[2022-04-08] MEDS ORDERED: Remdesivir 100 mg Vial 100 MG in NS 0.9% 250 ml 230 ML IV SCH (09:00)
[2022-04-08] MEDS ORDERED: Azithromycin 500 mg/250 ml NS 500 MG/250 ML BAG IVPB SCH (10:30)
[2022-04-08] MEDS ORDERED: cefTRIAXone 1 gm/50 mL D5W 1 GM/50 ML BAG IV SCH (12:00)
== END 2022-04-07 22:13 | disposition left against medical advice (07) | DRG 137 ==
LOC: ED 08:00 → EDHOLD 13:19 → MED 16:47
PROVIDERS: ADMIT Family Medicine; ATTEND Family Medicine

== ENCOUNTER 2022-04-16 12:55 | Inpatient (IN) ==
[2022-04-16 13:36] LABS: Hematocrit 38 % (42-52); Hemoglobin 12.2 g/dL (14.0-18.0); Mean Corpuscular HGB Conc 32 g/dL (31-36); Mean Corpuscular Hemoglobin 28 pg (27-31); Mean Corpuscular Volume 87 fL (80-94); Mean Platelet Volume 8.7 fL (7.4-10.4); Platelet Count 335 10^3/uL (150-450); Red Blood Count 4.31 10^6 /uL (4.18-5.48); Red Cell Distribution Width 14 % (10-15); White Blood Count 26.3 10^3/uL (3.5-10.8)
[2022-04-16 13:49] LABS: INR 1.43 (0.89-1.11)
[2022-04-16 14:13] LABS: Albumin 3.5 g/dL (3.2-5.2); Albumin/Globulin Ratio 1.1 (1-3); Calcium 8.7 mg/dL (8.6-10.3); Globulin 3.3 g/dL (2-4); Potassium 4.5 mmol/L (3.5-5.0); Total Bilirubin 1.1 mg/dL (0.2-1.0); Total Protein 6.8 g/dL (6.4-8.9); eGFR CKD-EPI 79.3 (>60)
[2022-04-16 14:42] LABS: ABS Lymphocytes 0.9 10^3/ul (1.0-4.8); ABS Monocytes 3.1 10^3/ul (0-0.8); ABS Neutrophils 22.3 10^3/ul (1.5-7.7); Eosinophil % 0.1 %; Lymphocyte % 3.3 %
[2022-04-16 15:33] LABS: High Sensitivity Troponin 1 Hr 5 pg/mL (<20)
[2022-04-16] MEDS ORDERED: NS 0.9% 1000 ml BAG 1,000 ML IV ONE (16:31)
[2022-04-16 16:38] LABS: INR 1.47 (0.89-1.11)
[2022-04-16] MEDS ORDERED: HYDROmorphone 1 MG/1 ML SYRINGE IV SLOW PU ONE ×2 (16:40→22:17)
[2022-04-16] MEDS ORDERED: Piperacillin/Tazobac ADVAN 3.375 GM in NS 0.9% 100 ml BAG 100 ML IV ONE (16:40)
[2022-04-16] MEDS ORDERED: Vancomycin 1,000 MG in NS 0.9% 250 ml 250 ML IVPB ONE (16:40)
[2022-04-16] MEDS ORDERED: Iohexol 350 (CONTRAST) 500 ML MDV IV ONE (16:44)
[2022-04-16] MEDS ORDERED: Albuterol HFA INHALER 8 gm MDI INH ONE (16:48)
[2022-04-16 17:07] LABS: Activated Partial Thrombo Time 37.9 seconds (26.0-38.0)
[2022-04-16] MEDS ORDERED: Albuterol HFA INHALER 8 gm MDI INH PRN (19:32)
[2022-04-16] MEDS ORDERED: Vancomycin per Pharmacy 1 EA NOTE FOLLOW UP SCH (20:00)
[2022-04-16] MEDS ORDERED: metroNIDAZOLE IV 500 MG/100ML 500 MG/100 ML BAG IVPB SCH (20:00)
[2022-04-16 22:54] LABS: Urine Appearance Clear; Urine Bilirubin Negative (Negative); Urine Blood 1+ (Negative); Urine Color Amber; Urine Glucose Negative (Negative); Urine Ketones Negative (Negative); Urine Nitrite Negative (Negative); Urine Protein 2+(100 mg/dL) (Negative); Urine Urobilinogen Negative (Negative)
[2022-04-16 23:13] LABS: Urine Bacteria Absent (Absent); Urine Red Blood Cell 1+(3-5/hpf) (Absent); Urine Squamous Epithelial Cell Present (Absent); Urine White Blood Cell Absent (Absent)
[2022-04-16 23:20] LABS: Urine Specific Gravity > 1.060 (1.002-1.030)
[2022-04-17] MEDS: Cefepime 2 GM in Dextrose 2 GM/50 ML BAG IV SCH ×3 (00:35→23:13)
[2022-04-17] MEDS: metroNIDAZOLE IV 500 MG/100ML 500 MG/100 ML BAG IVPB SCH ×3 (05:32→22:00)
[2022-04-17 06:03] LABS: Hematocrit 36 % (42-52); Hemoglobin 12.3 g/dL (14.0-18.0); Mean Corpuscular HGB Conc 34 g/dL (31-36); Mean Corpuscular Hemoglobin 29 pg (27-31); Mean Corpuscular Volume 86 fL (80-94); Mean Platelet Volume 8.8 fL (7.4-10.4); Platelet Count 319 10^3/uL (150-450); Red Blood Count 4.21 10^6 /uL (4.18-5.48); Red Cell Distribution Width 14 % (10-15)
[2022-04-17 06:05] LABS: ABS Lymphocytes 0.6 10^3/ul (1.0-4.8); ABS Monocytes 1.2 10^3/ul (0-0.8); ABS Neutrophils 21.2 10^3/ul (1.5-7.7); Lymphocyte % 2.8 %
[2022-04-17 06:12] LABS: INR 1.4 (0.89-1.11)
[2022-04-17 06:35] LABS: C Reactive Protein 285.73 mg/L (<8.01); Calcium 8.5 mg/dL (8.6-10.3); Magnesium 1.9 mg/dL (1.9-2.7); Potassium 4.7 mmol/L (3.5-5.0); eGFR CKD-EPI 101.5 (>60)
[2022-04-17] MEDS: Vancomycin 1,250 MG in NS 0.9% 250 ml 250 ML IVPB SCH ×2 (08:03→20:06)
[2022-04-17] MEDS: SPIRIVA Respimat (tiotropium) 2.5 mcg/inh Inhaler INH SCH (08:51)
[2022-04-17] MEDS: Nicotine PATCH 21 MG/24 HR PATCH TRANSDERM SCH (09:00)
[2022-04-17 18:44] LABS: Urine Benzodiazepine Screen None Detected (None Detect); Urine Buprenorphine Screen None Detected (None Detect); Urine Cannabinoids Screen Presumptive Positive (None Detect); Urine Fentanyl Screen Presumptive Positive (None Detect); Urine Hydrocodone Screen Presumptive Positive (None Detect); Urine Opiates Screen Presumptive Positive (None Detect)
[2022-04-18] MEDS: metroNIDAZOLE IV 500 MG/100ML 500 MG/100 ML BAG IVPB SCH ×3 (05:16→22:53)
[2022-04-18] MEDS ORDERED: Vancomycin Trough Check NOTE FOLLOW UP ONE (07:00)
[2022-04-18 07:08] LABS: ABS Basophils 0.3 10^3/ul (0-0.2); ABS Lymphocytes 0.6 10^3/ul (1.0-4.8); ABS Monocytes 0.8 10^3/ul (0-0.8); ABS Neutrophils 17.2 10^3/ul (1.5-7.7); Hematocrit 36 % (42-52); Hemoglobin 11.8 g/dL (14.0-18.0); Lymphocyte % 3.1 %; Mean Corpuscular HGB Conc 33 g/dL (31-36); Mean Corpuscular Hemoglobin 28 pg (27-31); Mean Corpuscular Volume 87 fL (80-94); Mean Platelet Volume 8.7 fL (7.4-10.4); Platelet Count 345 10^3/uL (150-450); Red Blood Count 4.16 10^6 /uL (4.18-5.48); Red Cell Distribution Width 15 % (10-15); White Blood Count 18.8 10^3/uL (3.5-10.8)
[2022-04-18 07:52] LABS: Calcium 8.7 mg/dL (8.6-10.3); Potassium 4.3 mmol/L (3.5-5.0); Vancomycin Trough 7.9 mcg/mL; eGFR CKD-EPI 101.2 (>60); eGFR CKD-EPI 98.2 (>60)
[2022-04-18] MEDS: Nicotine PATCH 21 MG/24 HR PATCH TRANSDERM SCH (08:18)
[2022-04-18] MEDS: Vancomycin 1,250 MG in NS 0.9% 250 ml 250 ML IVPB SCH ×2 (08:34→20:34)
[2022-04-18] MEDS: SPIRIVA Respimat (tiotropium) 2.5 mcg/inh Inhaler INH SCH (10:14)
[2022-04-18] MEDS ORDERED: fentaNYL 100 mcg/2 ml 50 MCG/ML VIAL ONE (10:37)
[2022-04-18 12:04] LABS: Body Fluid Appearance Bloody; Body Fluid Color Red; Body Fluid Source Pleural Fluid
[2022-04-18 12:32] LABS: Body Fluid WBC 13756 /mcL
[2022-04-18] MEDS: Cefepime 2 GM in Dextrose 2 GM/50 ML BAG IV SCH ×2 (12:44→23:54)
[2022-04-18 13:58] LABS: Body Fluid Mono 14 %; Body Fluid Total Cells Counted 200
[2022-04-19 06:04] LABS: ABS Lymphocytes 0.4 10^3/ul (1.0-4.8); ABS Monocytes 0.8 10^3/ul (0-0.8); ABS Neutrophils 14.1 10^3/ul (1.5-7.7); Hematocrit 35 % (42-52); Hemoglobin 10.9 g/dL (14.0-18.0); Lymphocyte % 2.8 %; Mean Corpuscular HGB Conc 32 g/dL (31-36); Mean Corpuscular Hemoglobin 28 pg (27-31); Mean Corpuscular Volume 89 fL (80-94); Mean Platelet Volume 9.1 fL (7.4-10.4); Platelet Count 345 10^3/uL (150-450); Red Blood Count 3.87 10^6 /uL (4.18-5.48); Red Cell Distribution Width 15 % (10-15); White Blood Count 15.4 10^3/uL (3.5-10.8)
[2022-04-19] MEDS: metroNIDAZOLE IV 500 MG/100ML 500 MG/100 ML BAG IVPB SCH ×3 (06:13→21:56)
[2022-04-19 06:25] LABS: Calcium 8.3 mg/dL (8.6-10.3); eGFR CKD-EPI 69.3 (>60)
[2022-04-19 06:48] LABS: Potassium 5.4 mmol/L (3.5-5.0)
[2022-04-19] MEDS: Vancomycin 1,250 MG in NS 0.9% 250 ml 250 ML IVPB SCH ×2 (08:57→19:50)
[2022-04-19] MEDS: Nicotine PATCH 21 MG/24 HR PATCH TRANSDERM SCH (08:58)
[2022-04-19] MEDS: SPIRIVA Respimat (tiotropium) 2.5 mcg/inh Inhaler INH SCH (10:01)
[2022-04-19] MEDS ORDERED: Sodium Polystyrene ORAL.SUSP 15 GM/60 ML BTL PO ONE (10:46)
[2022-04-19] MEDS: Cefepime 2 GM in Dextrose 2 GM/50 ML BAG IV SCH ×2 (10:54→23:07)
[2022-04-19] MEDS ORDERED: NS 0.9% 1000 ml BAG 1,000 ML IV SCH (11:00)
[2022-04-19 15:07] LABS: Albumin, BF 2.3 g/dL; Fluid Type, Albumin PLEURAL FLUID
[2022-04-19 15:18] LABS: Glucose, BF 98 mg/dL
[2022-04-19 15:21] LABS: Fluid Type, Protein, Total PLEURAL FLUID
[2022-04-19] MEDS: Heparin 5000 UNITS/ML 1 mL VIAL SUBCUT SCH (19:47)
[2022-04-20] MEDS: metroNIDAZOLE IV 500 MG/100ML 500 MG/100 ML BAG IVPB SCH (04:48)
[2022-04-20] MEDS: Vancomycin 1,250 MG in NS 0.9% 250 ml 250 ML IVPB SCH (07:45)
[2022-04-20 07:46] LABS: ABS Basophils 0.1 10^3/ul (0-0.2); ABS Lymphocytes 0.7 10^3/ul (1.0-4.8); ABS Monocytes 0.7 10^3/ul (0-0.8); ABS Neutrophils 15.2 10^3/ul (1.5-7.7); Eosinophil % 0.1 %; Hematocrit 32 % (42-52); Hemoglobin 10.2 g/dL (14.0-18.0); Lymphocyte % 3.9 %; Mean Corpuscular HGB Conc 32 g/dL (31-36); Mean Corpuscular Hemoglobin 28 pg (27-31); Mean Corpuscular Volume 89 fL (80-94); Mean Platelet Volume 8.7 fL (7.4-10.4); Platelet Count 333 10^3/uL (150-450); Red Blood Count 3.66 10^6 /uL (4.18-5.48); Red Cell Distribution Width 14 % (10-15); White Blood Count 16.6 10^3/uL (3.5-10.8)
[2022-04-20 08:15] LABS: Calcium 8.4 mg/dL (8.6-10.3); Magnesium 1.8 mg/dL (1.9-2.7); Phosphorus 3.7 mg/dL (2.5-5.0); eGFR CKD-EPI 101.5 (>60)
[2022-04-20] MEDS: SPIRIVA Respimat (tiotropium) 2.5 mcg/inh Inhaler INH SCH (08:20)
[2022-04-20] MEDS: Heparin 5000 UNITS/ML 1 mL VIAL SUBCUT SCH (08:31)
[2022-04-20] MEDS: Nicotine PATCH 21 MG/24 HR PATCH TRANSDERM SCH (08:32)
[2022-04-20 08:36] LABS: Potassium 5.1 mmol/L (3.5-5.0)
[2022-04-20] MEDS: Cefepime 2 GM in Dextrose 2 GM/50 ML BAG IV SCH (11:01)
[2022-04-20 14:47] LABS: Lactate Dehydrogenase, BF 1182 U/L
[2022-04-20 16:06] VITALS: BP 151/70
[2022-04-21] MEDS ORDERED: Vancomycin Trough Check NOTE FOLLOW UP ONE (07:00)
== END 2022-04-20 19:05 | disposition left against medical advice (07) | DRG 139 ==
LOC: ED 12:55 → SUATTDRO 19:29 → EDHOLD 19:29 → MED 23:54
PROVIDERS: ADMIT Student in an Organized Health Care Education/Training Program; ATTEND Internal Medicine

== ENCOUNTER 2022-04-21 15:53 | Inpatient (IN) ==
[2022-04-21 16:26] LABS: Hematocrit 37 % (42-52); Hemoglobin 12.1 g/dL (14.0-18.0); Mean Corpuscular HGB Conc 33 g/dL (31-36); Mean Corpuscular Hemoglobin 28 pg (27-31); Mean Corpuscular Volume 86 fL (80-94); Mean Platelet Volume 8.6 fL (7.4-10.4); Platelet Count 404 10^3/uL (150-450); Red Blood Count 4.27 10^6 /uL (4.18-5.48); Red Cell Distribution Width 15 % (10-15); White Blood Count 18.5 10^3/uL (3.5-10.8)
[2022-04-21 16:53] LABS: INR 1.49 (0.89-1.11)
[2022-04-21 17:26] LABS: ABS Basophils 0.1 10^3/ul (0-0.2); ABS Eosinophils 0.3 10^3/ul (0-0.6); ABS Monocytes 1.8 10^3/ul (0-0.8); ABS Neutrophils 14.3 10^3/ul (1.5-7.7); Eosinophil % 1.7 %; Lymphocyte % 10.8 %; Nucleated Red Blood Cells % 0.1
[2022-04-21 17:52] LABS: High Sensitivity Troponin 1 Hr 12 pg/mL (<20)
[2022-04-21] MEDS ORDERED: Ondansetron 4 mg VIAL 2 MG/ML 2 ml VIAL IV ONE (18:21)
[2022-04-21] MEDS ORDERED: Ondansetron 4 mg VIAL 2 MG/ML 2 ml VIAL ONE (18:22)
[2022-04-21 18:23] LABS: Albumin 3.3 g/dL (3.2-5.2); Calcium 8.6 mg/dL (8.6-10.3); Globulin 3.2 g/dL (2-4); Potassium 3.8 mmol/L (3.5-5.0); Total Bilirubin 0.6 mg/dL (0.2-1.0); Total Protein 6.5 g/dL (6.4-8.9); eGFR CKD-EPI 109.8 (>60)
[2022-04-21 21:18] LABS: Urine Appearance Clear; Urine Bilirubin Negative (Negative); Urine Blood Negative (Negative); Urine Color Straw; Urine Glucose Negative (Negative); Urine Ketones Negative (Negative); Urine Nitrite Negative (Negative); Urine Protein Negative (Negative); Urine Specific Gravity 1.009 (1.002-1.030); Urine Urobilinogen Negative (Negative)
[2022-04-21] MEDS ORDERED: Albuterol HFA INHALER 8 gm MDI INH PRN (21:21)
[2022-04-21] MEDS ORDERED: Vancomycin per Pharmacy 1 EA NOTE FOLLOW UP PRN (21:21)
[2022-04-21] MEDS ORDERED: Vancomycin Random Level NOTE FOLLOW UP ONE (21:21)
[2022-04-21] MEDS ORDERED: Albuterol/Ipratropium NEB.SOL (2.5/0.5 MG) 3 ML NEB.SOLN INH ONE (21:22)
[2022-04-21 21:23] LABS: Urine Benzodiazepine Screen None Detected (None Detect); Urine Cannabinoids Screen None Detected (None Detect); Urine Opiates Screen None Detected (None Detect)
[2022-04-21] MEDS: Heparin 5000 UNITS/ML 1 mL VIAL SUBCUT SCH (21:32)
[2022-04-21] MEDS: Nicotine PATCH 21 MG/24 HR PATCH TRANSDERM SCH (21:33)
[2022-04-21] MEDS ORDERED: Cefepime 2 GM IV - ED ONCE IV ONE (22:00)
[2022-04-21 22:33] LABS: Vancomycin Random 4.8 mcg/mL
[2022-04-21] MEDS ORDERED: Vancomycin 1500 MG IV - x ONCE IVPB ONE (23:00)
[2022-04-21] MEDS ORDERED: Furosemide 20 mg/2 ml IV VIAL IV SLOW PU ONE (23:45)
[2022-04-22] MEDS: Heparin 5000 UNITS/ML 1 mL VIAL SUBCUT SCH ×3 (05:04→20:02)
[2022-04-22 05:24] LABS: ABS Basophils 0.2 10^3/ul (0-0.2); ABS Eosinophils 0.4 10^3/ul (0-0.6); ABS Lymphocytes 2.7 10^3/ul (1.0-4.8); ABS Monocytes 1.5 10^3/ul (0-0.8); ABS Neutrophils 9.9 10^3/ul (1.5-7.7); Eosinophil % 2.8 %; Hematocrit 37 % (42-52); Hemoglobin 12.2 g/dL (14.0-18.0); Lymphocyte % 18.4 %; Mean Corpuscular HGB Conc 33 g/dL (31-36); Mean Corpuscular Hemoglobin 29 pg (27-31); Mean Corpuscular Volume 85 fL (80-94); Mean Platelet Volume 8.5 fL (7.4-10.4); Platelet Count 421 10^3/uL (150-450); Red Blood Count 4.28 10^6 /uL (4.18-5.48); Red Cell Distribution Width 15 % (10-15); White Blood Count 14.8 10^3/uL (3.5-10.8)
[2022-04-22 05:57] LABS: C Reactive Protein 103.61 mg/L (<8.01); Calcium 8.5 mg/dL (8.6-10.3); eGFR CKD-EPI 112.3 (>60)
[2022-04-22] MEDS: Nicotine PATCH 21 MG/24 HR PATCH TRANSDERM SCH (08:01)
[2022-04-22] MEDS: Vancomycin 1,250 MG in NS 0.9% 250 ml 250 ML IVPB SCH ×3 (08:01→23:00)
[2022-04-22] MEDS: SPIRIVA Respimat (tiotropium) 2.5 mcg/inh Inhaler INH SCH (08:07)
[2022-04-22] MEDS: Cefepime 2 GM in Dextrose 2 GM/50 ML BAG IV SCH ×2 (10:11→21:54)
[2022-04-22] MEDS: Morphine ER 30 mg TAB ** extended release PO SCH (22:13)
[2022-04-23] MEDS: Heparin 5000 UNITS/ML 1 mL VIAL SUBCUT SCH (05:29)
[2022-04-23] MEDS: SPIRIVA Respimat (tiotropium) 2.5 mcg/inh Inhaler INH SCH (07:22)
[2022-04-23] MEDS ORDERED: Vancomycin Trough Check NOTE FOLLOW UP ONE (07:30)
[2022-04-23 07:41] LABS: Hematocrit 35 % (42-52); Hemoglobin 11.5 g/dL (14.0-18.0); Mean Corpuscular HGB Conc 33 g/dL (31-36); Mean Corpuscular Hemoglobin 28 pg (27-31); Mean Corpuscular Volume 87 fL (80-94); Mean Platelet Volume 8.4 fL (7.4-10.4); Platelet Count 404 10^3/uL (150-450); Red Blood Count 4.09 10^6 /uL (4.18-5.48); Red Cell Distribution Width 14 % (10-15)
[2022-04-23 08:23] LABS: Calcium 8.4 mg/dL (8.6-10.3); Magnesium 1.7 mg/dL (1.9-2.7); Phosphorus 3.6 mg/dL (2.5-5.0); Potassium 4.1 mmol/L (3.5-5.0); eGFR CKD-EPI 109.3 (>60)
[2022-04-23] MEDS: Nicotine PATCH 21 MG/24 HR PATCH TRANSDERM SCH (08:30)
[2022-04-23] MEDS: Vancomycin 1,250 MG in NS 0.9% 250 ml 250 ML IVPB SCH (08:56)
[2022-04-23] MEDS ORDERED: Magnesium Sulfate IV 3 GM in NS 0.9% 100 ml BAG 100 ML IVPB ONE (10:00)
[2022-04-23 10:09] LABS: RBC Morphology Normal (Normal)
[2022-04-23 10:14] LABS: ABS Basophils 0.2 10^3/ul (0-0.2); ABS Eosinophils 0.3 10^3/ul (0-0.6); ABS Lymphocytes 2.9 10^3/ul (1.0-4.8); ABS Monocytes 1.7 10^3/ul (0-0.8); ABS Neutrophils 8.9 10^3/ul (1.5-7.7); Eosinophil % 2.3 %; Lymphocyte % 20.9 %
[2022-04-23] MEDS: Morphine ER 30 mg TAB ** extended release PO SCH ×2 (10:50→22:14)
[2022-04-23] MEDS: Cefepime 2 GM in Dextrose 2 GM/50 ML BAG IV SCH ×2 (12:02→20:45)
[2022-04-23] MEDS ORDERED: fentaNYL 100 mcg/2 ml 50 MCG/ML VIAL ONE (16:11)
[2022-04-23] MEDS ORDERED: DORNASE ALFA 1 mg/ml(NF) 5 MG in NS 0.9% 50 ML 45 ML INTRAPLEUR ONE (17:00)
[2022-04-23] MEDS ORDERED: Alteplase (CATHFLO) 10 MG in NS 0.9% 50 ML 40 ML INTRAPLEUR ONE (17:00)
[2022-04-24 06:22] LABS: Hematocrit 37 % (42-52); Hemoglobin 12.2 g/dL (14.0-18.0); Mean Corpuscular HGB Conc 33 g/dL (31-36); Mean Corpuscular Hemoglobin 29 pg (27-31); Mean Corpuscular Volume 87 fL (80-94); Mean Platelet Volume 8.1 fL (7.4-10.4); Platelet Count 421 10^3/uL (150-450); Red Blood Count 4.27 10^6 /uL (4.18-5.48); Red Cell Distribution Width 15 % (10-15); White Blood Count 12.2 10^3/uL (3.5-10.8)
[2022-04-24] MEDS ORDERED: Magnesium Sulfate 2 gm BAG 2 GM/50 ML BAG IVPB ONE (07:02)
[2022-04-24 07:03] LABS: Calcium 8.6 mg/dL (8.6-10.3); Potassium 4.6 mmol/L (3.5-5.0); eGFR CKD-EPI 108.4 (>60)
[2022-04-24 07:28] LABS: RBC Morphology Normal (Normal)
[2022-04-24] MEDS: SPIRIVA Respimat (tiotropium) 2.5 mcg/inh Inhaler INH SCH (07:35)
[2022-04-24] MEDS: Nicotine PATCH 21 MG/24 HR PATCH TRANSDERM SCH (08:08)
[2022-04-24 08:25] LABS: Magnesium 2.1 mg/dL (1.9-2.7)
[2022-04-24 08:36] LABS: ABS Basophils 0.1 10^3/ul (0-0.2); ABS Eosinophils 0.1 10^3/ul (0-0.6); ABS Lymphocytes 2.6 10^3/ul (1.0-4.8); ABS Monocytes 1.6 10^3/ul (0-0.8); ABS Neutrophils 7.8 10^3/ul (1.5-7.7); Eosinophil % 1.1 %; Lymphocyte % 21.2 %
[2022-04-24] MEDS: Cefepime 2 GM in Dextrose 2 GM/50 ML BAG IV SCH ×2 (10:16→22:02)
[2022-04-24] MEDS: Morphine ER 30 mg TAB ** extended release PO SCH ×2 (11:13→23:07)
[2022-04-24] MEDS ORDERED: DORNASE ALFA 1 mg/ml 5 MG in NS 0.9% 50 ML INTRAPLEUR ONE (11:30)
[2022-04-24] MEDS ORDERED: Alteplase 10 MG/50 ML NS for CHEST TUBE instillation INTRAPLEUR ONE (11:30)
[2022-04-24] MEDS ORDERED: Simethicone SUSP ORALSYR 66.66 MG/ML PO PRN (15:59)
[2022-04-24] MEDS: Morphine ORAL.SOLN 10 mg 2 mg/ml UDC 5 ml (10 mg) PO PRN ×2 (18:01→22:02)
[2022-04-25] MEDS: Morphine ORAL.SOLN 10 mg 2 mg/ml UDC 5 ml (10 mg) PO PRN ×7 (02:22→21:28)
[2022-04-25 06:13] LABS: Hematocrit 40 % (42-52); Hemoglobin 12.9 g/dL (14.0-18.0); Mean Corpuscular HGB Conc 32 g/dL (31-36); Mean Corpuscular Hemoglobin 28 pg (27-31); Mean Corpuscular Volume 87 fL (80-94); Mean Platelet Volume 8.5 fL (7.4-10.4); Platelet Count 429 10^3/uL (150-450); Red Blood Count 4.64 10^6 /uL (4.18-5.48); Red Cell Distribution Width 15 % (10-15); White Blood Count 12.4 10^3/uL (3.5-10.8)
[2022-04-25 06:14] LABS: ABS Basophils 0.1 10^3/ul (0-0.2); ABS Eosinophils 0.1 10^3/ul (0-0.6); ABS Lymphocytes 2.4 10^3/ul (1.0-4.8); ABS Monocytes 1.7 10^3/ul (0-0.8); ABS Neutrophils 8.1 10^3/ul (1.5-7.7); Eosinophil % 0.7 %; Lymphocyte % 19.4 %
[2022-04-25 06:37] LABS: Calcium 9.2 mg/dL (8.6-10.3); Potassium 4.9 mmol/L (3.5-5.0); eGFR CKD-EPI 108.8 (>60)
[2022-04-25] MEDS: SPIRIVA Respimat (tiotropium) 2.5 mcg/inh Inhaler INH SCH (07:03)
[2022-04-25] MEDS ORDERED: cefTRIAXone 1 gm/50 mL D5W 1 GM/50 ML BAG IV SCH (09:00)
[2022-04-25] MEDS: Nicotine PATCH 21 MG/24 HR PATCH TRANSDERM SCH (09:45)
[2022-04-25] MEDS: metroNIDAZOLE IV 500 MG/100ML 500 MG/100 ML BAG IVPB SCH ×2 (09:46→15:56)
[2022-04-25] MEDS: cefTRIAXone 1 gm/50 mL D5W 1 GM/50 ML BAG IV SCH (11:04)
[2022-04-25] MEDS: Morphine ER 30 mg TAB ** extended release PO SCH ×2 (11:04→23:02)
[2022-04-26] MEDS: Morphine ORAL.SOLN 10 mg 2 mg/ml UDC 5 ml (10 mg) PO PRN ×7 (01:45→22:28)
[2022-04-26] MEDS: metroNIDAZOLE IV 500 MG/100ML 500 MG/100 ML BAG IVPB SCH ×3 (01:45→17:00)
[2022-04-26 06:50] LABS: Calcium 8.9 mg/dL (8.6-10.3); Potassium 4.7 mmol/L (3.5-5.0); eGFR CKD-EPI 107.9 (>60)
[2022-04-26] MEDS: SPIRIVA Respimat (tiotropium) 2.5 mcg/inh Inhaler INH SCH (07:35)
[2022-04-26] MEDS: Nicotine PATCH 21 MG/24 HR PATCH TRANSDERM SCH (09:21)
[2022-04-26] MEDS: cefTRIAXone 1 gm/50 mL D5W 1 GM/50 ML BAG IV SCH (11:19)
[2022-04-26] MEDS: Morphine ER 30 mg TAB ** extended release PO SCH ×2 (11:47→23:29)
[2022-04-27] MEDS: metroNIDAZOLE IV 500 MG/100ML 500 MG/100 ML BAG IVPB SCH ×3 (01:25→16:33)
[2022-04-27] MEDS: Morphine ORAL.SOLN 10 mg 2 mg/ml UDC 5 ml (10 mg) PO PRN ×7 (01:30→22:13)
[2022-04-27] MEDS: SPIRIVA Respimat (tiotropium) 2.5 mcg/inh Inhaler INH SCH (07:01)
[2022-04-27] MEDS: Nicotine PATCH 21 MG/24 HR PATCH TRANSDERM SCH (08:25)
[2022-04-27] MEDS: cefTRIAXone 1 gm/50 mL D5W 1 GM/50 ML BAG IV SCH (09:51)
[2022-04-27] MEDS: Morphine ER 30 mg TAB ** extended release PO SCH ×2 (10:42→23:02)
[2022-04-28] MEDS: metroNIDAZOLE IV 500 MG/100ML 500 MG/100 ML BAG IVPB SCH ×2 (01:22→08:57)
[2022-04-28] MEDS: Morphine ORAL.SOLN 10 mg 2 mg/ml UDC 5 ml (10 mg) PO PRN ×4 (01:22→15:40)
[2022-04-28 06:41] LABS: Hematocrit 37 % (42-52); Hemoglobin 12.1 g/dL (14.0-18.0); Mean Corpuscular HGB Conc 32 g/dL (31-36); Mean Corpuscular Hemoglobin 28 pg (27-31); Mean Corpuscular Volume 87 fL (80-94); Mean Platelet Volume 8.8 fL (7.4-10.4); Platelet Count 339 10^3/uL (150-450); Red Blood Count 4.29 10^6 /uL (4.18-5.48); Red Cell Distribution Width 15 % (10-15); White Blood Count 11.7 10^3/uL (3.5-10.8)
[2022-04-28 06:44] LABS: ABS Basophils 0.1 10^3/ul (0-0.2); ABS Eosinophils 0.3 10^3/ul (0-0.6); ABS Lymphocytes 2.4 10^3/ul (1.0-4.8); ABS Monocytes 1.6 10^3/ul (0-0.8); ABS Neutrophils 7.2 10^3/ul (1.5-7.7); Eosinophil % 2.3 %
[2022-04-28 06:56] LABS: Calcium 8.4 mg/dL (8.6-10.3); Potassium 3.9 mmol/L (3.5-5.0); eGFR CKD-EPI 109.8 (>60)
[2022-04-28] MEDS: SPIRIVA Respimat (tiotropium) 2.5 mcg/inh Inhaler INH SCH (07:23)
[2022-04-28] MEDS: Nicotine PATCH 21 MG/24 HR PATCH TRANSDERM SCH (08:57)
[2022-04-28] MEDS: cefTRIAXone 1 gm/50 mL D5W 1 GM/50 ML BAG IV SCH (10:01)
[2022-04-28] MEDS: Morphine ER 30 mg TAB ** extended release PO SCH (10:41)
[2022-04-28 15:21] VITALS: BP 124/72
== END 2022-04-28 16:05 | disposition home or self-care (01) | DRG 133 ==
LOC: ED 15:53 → SUATTDRO 21:07 → EDHOLD 21:07 → MED 04-22 01:12
PROVIDERS: ADMIT Internal Medicine; ATTEND Internal Medicine